=== PATIENT | female | born 1950 | race Caucasian/White ===

== ENCOUNTER 2020-08-01 17:22 | Inpatient (IN) | payer OTHER ==
[2020-08-01 19:59] LABS: BASO % 0.2 % (0-2.0); LYMPH % 3.1 % (8-40); MCH 32.2 pg (25.7-33.7); MCHC 34.2 g/dl (32.0-36.0); MEAN CELL VOLUME 94.1 fl (80-96); MEAN PLT VOLUME 8.9 fl (7.5-11.1); MONO % 9.6 % (3.8-10.2); NEUT % 87.1 % (42.8-82.8); PLATELET COUNT 328 K/MM3 (134-434); RBC 4.04 M/mm3 (3.60-5.2); RDW 13.8 % (11.6-15.6); WHITE BLOOD COUNT 10.5 K/mm3 (4.0-10.0)
[2020-08-01 20:09] LABS: INR 1.09 (0.83-1.09); PROTHROMBIN TIME (PATIENT) 13.2 SEC (9.7-13.0)
[2020-08-01 20:12] LABS: ACTIVATED PTT 26.5 SECONDS (25.2-36.5)
[2020-08-01 20:17] LABS: CALCIUM 9.4 mg/dL (8.5-10.1)
[2020-08-01 20:18] LABS: BLOOD UREA NITROGEN 13.6 mg/dL (7-18)
[2020-08-01 20:22] LABS: BILIRUBIN,TOTAL 0.7 mg/dL (0.2-1)
[2020-08-01] MEDS ORDERED: LOSARTAN POTASSIUM 25 MG TABLET PO ONE (21:33)
[2020-08-01] MEDS ORDERED: LIDOCAINE PATCH REMOVAL MC SCH (22:00)
[2020-08-01] MEDS ORDERED: LACTATED RINGERS SOLUTION 1,000 ML IV SCH (23:00)
[2020-08-01] MEDS ORDERED: ATENOLOL 25 MG TABLET (FP) ONE (23:12)
[2020-08-01] MEDS ORDERED: carBAMazepine 200 MG TABLET ONE (23:13)
[2020-08-01] MEDS ORDERED: LOSARTAN POTASSIUM 50 MG TABLET ONE (23:13)
[2020-08-01] MEDS: carBAMazepine 100 MG TAB.CHEW PO SCH (23:24)
[2020-08-01] MEDS: ATENOLOL 25 MG TABLET (FP) PO SCH (23:24)
[2020-08-02] MEDS ORDERED: LOSARTAN POTASSIUM 50 MG TABLET PO ONE (00:16)
[2020-08-02] MEDS: ACETAMINOPHEN 1000 MG/100 ML VIAL (NON FORMULARY) IVPB PRN ×2 (02:11→09:32)
[2020-08-02 05:58] VITALS: BMI 20.7
[2020-08-02] MEDS: carBAMazepine 100 MG TAB.CHEW PO SCH ×3 (06:46→22:17)
[2020-08-02 08:43] LABS: HEMATOCRIT 32.4 % (32.4-45.2); HEMOGLOBIN 11.4 GM/dL (10.7-15.3); MCH 32.8 pg (25.7-33.7); MCHC 35.1 g/dl (32.0-36.0); MEAN CELL VOLUME 93.4 fl (80-96); MEAN PLT VOLUME 8.9 fl (7.5-11.1); PLATELET COUNT 260 K/MM3 (134-434); RBC 3.47 M/mm3 (3.60-5.2); RDW 13.8 % (11.6-15.6); WHITE BLOOD COUNT 9.3 K/mm3 (4.0-10.0)
[2020-08-02 09:00] LABS: BLOOD UREA NITROGEN 14.9 mg/dL (7-18); CALCIUM 8.8 mg/dL (8.5-10.1)
[2020-08-02 09:01] LABS: MAGNESIUM 2.4 mg/dL (1.8-2.4)
[2020-08-02 09:02] LABS: CREATININE 0.6 mg/dL (0.55-1.3)
[2020-08-02 09:05] LABS: PHOSPHOROUS 3.6 mg/dL (2.5-4.9)
[2020-08-02] MEDS ORDERED: PT OWN MED DRAWER 7, Y5N ONE ×2 (09:22→23:16)
[2020-08-02] MEDS: ATENOLOL 25 MG TABLET (FP) PO SCH ×2 (09:34→21:19)
[2020-08-02] MEDS ORDERED: LIDOCAINE 5% TOPICAL PATCH TP SCH (10:00)
[2020-08-02] MEDS ORDERED: LOSARTAN POTASSIUM 50 MG TABLET PO SCH (10:00)
[2020-08-02] MEDS ORDERED: DEXTROSE 5%-0.45% SALINE 1,000 ML IV SCH (10:45)
[2020-08-02] MEDS ORDERED: PROPOFOL 20 ML ONE (12:20)
[2020-08-02] MEDS ORDERED: LIDOCAINE HCL/PF 2% SDV 5ML VIAL ONE (12:20)
[2020-08-02] MEDS ORDERED: MIDAZOLAM HCL 2 MG/2 ML SINGLE DOSE VIAL ONE (12:21)
[2020-08-02] MEDS ORDERED: ceFAZolin SODIUM 1 GM VIAL IVPB ONE (12:35)
[2020-08-02] MEDS ORDERED: ceFAZolin SODIUM 1 GM VIAL ONE (12:38)
[2020-08-02] MEDS ORDERED: NEOSTIGMINE METHYLSULFATE 0.5 MG/ML - 10 ML MDV ONE (12:54)
[2020-08-02] MEDS ORDERED: EPHEDRINE SULFATE/0.9% NACL/PF 50 MG/10 ML SYRINGE NR ONE (13:06)
[2020-08-02] MEDS ORDERED: ONDANSETRON 4 MG/2 ML VIAL IVPUSH PRN ×2 (13:06→14:28)
[2020-08-02] MEDS ORDERED: ACETAMINOPHEN 1000 MG/100 ML VIAL (NON FORMULARY) IVPB PRN (14:28)
[2020-08-02] MEDS ORDERED: LACTATED RINGERS SOLUTION 1,000 ML IV SCH (14:28)
[2020-08-02] MEDS: DEXTROSE 5%-0.45% SALINE 1,000 ML IV SCH ×3 (15:45→22:00)
[2020-08-02] MEDS: LIDOCAINE PATCH REMOVAL MC SCH (21:19)
[2020-08-02] MEDS: ATORVASTATIN CA 20 MG TABLET (FP) PO SCH (21:19)
[2020-08-02] MEDS ORDERED: LORazepam 2 MG/ML SDV VIAL IVPB ONE (22:00)
[2020-08-02] MEDS ORDERED: ATORVASTATIN CA 20 MG TABLET (FP) PO SCH (22:00)
[2020-08-02] MEDS ORDERED: LIDOCAINE PATCH REMOVAL MC SCH (22:00)
[2020-08-03] MEDS: carBAMazepine 100 MG TAB.CHEW PO SCH ×3 (06:07→21:27)
[2020-08-03 09:11] LABS: BASO % 0.5 % (0-2.0); EOS % 0.1 % (0-4.5); HEMATOCRIT 22.6 % (32.4-45.2); HEMOGLOBIN 7.7 GM/dL (10.7-15.3); LYMPH % 9.1 % (8-40); MCH 32.3 pg (25.7-33.7); MEAN PLT VOLUME 9.6 fl (7.5-11.1); MONO % 12.5 % (3.8-10.2); NEUT % 77.8 % (42.8-82.8); PLATELET COUNT 226 K/MM3 (134-434); RBC 2.37 M/mm3 (3.60-5.2); RDW 13.3 % (11.6-15.6); WHITE BLOOD COUNT 7.4 K/mm3 (4.0-10.0)
[2020-08-03] MEDS: ATENOLOL 25 MG TABLET (FP) PO SCH ×2 (09:28→21:25)
[2020-08-03] MEDS: ENOXAPARIN NA (PORCINE) 40 MG/0.4 ML DISP.SYRIN SQ SCH (09:28)
[2020-08-03] MEDS: LOSARTAN POTASSIUM 50 MG TABLET PO SCH (09:28)
[2020-08-03 09:29] LABS: CALCIUM 8.2 mg/dL (8.5-10.1)
[2020-08-03] MEDS: LIDOCAINE 5% TOPICAL PATCH TP SCH (09:29)
[2020-08-03 09:30] LABS: BLOOD UREA NITROGEN 14.7 mg/dL (7-18); MAGNESIUM 2.3 mg/dL (1.8-2.4)
[2020-08-03 09:33] LABS: CREATININE 0.6 mg/dL (0.55-1.3); PHOSPHOROUS 2.5 mg/dL (2.5-4.9)
[2020-08-03 09:34] LABS: BILIRUBIN,TOTAL 0.4 mg/dL (0.2-1)
[2020-08-03 09:37] LABS: ALBUMIN 2.6 g/dl (3.4-5.0); TOT PROT 4.7 g/dl (6.4-8.2)
[2020-08-03] MEDS: ACETAMINOPHEN 1000 MG/100 ML VIAL (NON FORMULARY) IVPB PRN ×2 (09:44→21:24)
[2020-08-03] MEDS ORDERED: QUEtiapine FUMARATE 25 MG TABLET PO ONE (11:47)
[2020-08-03] MEDS ORDERED: PT OWN MED DRAWER 7, Y5N ONE ×2 (11:54→21:27)
[2020-08-03] MEDS: DEXTROSE 5%-0.45% SALINE 1,000 ML IV SCH (13:23)
[2020-08-03] MEDS: ATORVASTATIN CA 20 MG TABLET (FP) PO SCH (21:25)
[2020-08-03] MEDS: LIDOCAINE PATCH REMOVAL MC SCH (21:28)
[2020-08-03 21:45] LABS: HEMATOCRIT 19.9 % (32.4-45.2); MCH 32.2 pg (25.7-33.7); MCHC 33.8 g/dl (32.0-36.0); MEAN CELL VOLUME 95.3 fl (80-96); MEAN PLT VOLUME 9.2 fl (7.5-11.1); PLATELET COUNT 209 K/MM3 (134-434); RBC 2.09 M/mm3 (3.60-5.2); RDW 13.7 % (11.6-15.6)
[2020-08-03 21:49] LABS: HEMOGLOBIN 6.7 GM/dL (10.7-15.3)
[2020-08-03] MEDS ORDERED: LORazepam 2 MG/ML SDV VIAL IVPB ONE (22:58)
[2020-08-04] MEDS: DEXTROSE 5%-0.45% SALINE 1,000 ML IV SCH ×2 (00:35→23:46)
[2020-08-04] MEDS: carBAMazepine 100 MG TAB.CHEW PO SCH ×3 (05:38→21:26)
[2020-08-04] MEDS: ACETAMINOPHEN 1000 MG/100 ML VIAL (NON FORMULARY) IVPB PRN (06:26)
[2020-08-04] MEDS: ATENOLOL 25 MG TABLET (FP) PO SCH ×2 (10:09→21:26)
[2020-08-04] MEDS: LIDOCAINE 5% TOPICAL PATCH TP SCH (10:09)
[2020-08-04] MEDS: LOSARTAN POTASSIUM 50 MG TABLET PO SCH (10:09)
[2020-08-04 12:16] LABS: BASO % 0.4 % (0-2.0); EOS % 0.4 % (0-4.5); HEMATOCRIT 23.7 % (32.4-45.2); HEMOGLOBIN 8.3 GM/dL (10.7-15.3); LYMPH % 7.4 % (8-40); MCH 31.4 pg (25.7-33.7); MEAN CELL VOLUME 89.7 fl (80-96); MONO % 10.7 % (3.8-10.2); NEUT % 81.1 % (42.8-82.8); PLATELET COUNT 226 K/MM3 (134-434); RBC 2.64 M/mm3 (3.60-5.2)
[2020-08-04 12:46] LABS: ALBUMIN 2.4 g/dl (3.4-5.0); BLOOD UREA NITROGEN 13.3 mg/dL (7-18); CALCIUM 7.8 mg/dL (8.5-10.1)
[2020-08-04 12:47] LABS: MAGNESIUM 2.2 mg/dL (1.8-2.4)
[2020-08-04 12:49] LABS: CREATININE 0.5 mg/dL (0.55-1.3)
[2020-08-04 12:50] LABS: PHOSPHOROUS 2.5 mg/dL (2.5-4.9)
[2020-08-04 12:51] LABS: BILIRUBIN,TOTAL 0.8 mg/dL (0.2-1); TOT PROT 4.5 g/dl (6.4-8.2)
[2020-08-04] MEDS ORDERED: PT OWN MED DRAWER 7, Y5N ONE ×3 (14:10→21:04)
[2020-08-04 16:17] LABS: BASO % 0.5 % (0-2.0); EOS % 0.4 % (0-4.5); HEMATOCRIT 25.9 % (32.4-45.2); HEMOGLOBIN 8.9 GM/dL (10.7-15.3); LYMPH % 8.7 % (8-40); MCH 31.5 pg (25.7-33.7); MCHC 34.5 g/dl (32.0-36.0); MEAN CELL VOLUME 91.1 fl (80-96); MEAN PLT VOLUME 9.4 fl (7.5-11.1); MONO % 12.5 % (3.8-10.2); NEUT % 77.9 % (42.8-82.8); PLATELET COUNT 233 K/MM3 (134-434); RBC 2.84 M/mm3 (3.60-5.2); RDW 16.3 % (11.6-15.6); WHITE BLOOD COUNT 6.2 K/mm3 (4.0-10.0)
[2020-08-04] MEDS: LIDOCAINE PATCH REMOVAL MC SCH (21:26)
[2020-08-04] MEDS: ATORVASTATIN CA 20 MG TABLET (FP) PO SCH (21:26)
[2020-08-04] MEDS ORDERED: ACETAMINOPHEN 325 MG TABLET (FP) PO PRN (23:53)
[2020-08-05] MEDS: carBAMazepine 100 MG TAB.CHEW PO SCH ×3 (06:12→21:47)
[2020-08-05 09:10] LABS: BASO % 0.4 % (0-2.0); EOS % 0.9 % (0-4.5); HEMATOCRIT 25.6 % (32.4-45.2); HEMOGLOBIN 8.8 GM/dL (10.7-15.3); LYMPH % 10.9 % (8-40); MCH 31.6 pg (25.7-33.7); MCHC 34.3 g/dl (32.0-36.0); MEAN CELL VOLUME 92.1 fl (80-96); MEAN PLT VOLUME 8.4 fl (7.5-11.1); MONO % 12.9 % (3.8-10.2); NEUT % 74.9 % (42.8-82.8); PLATELET COUNT 278 K/MM3 (134-434); RBC 2.77 M/mm3 (3.60-5.2); RDW 16.5 % (11.6-15.6); WHITE BLOOD COUNT 6.9 K/mm3 (4.0-10.0)
[2020-08-05 09:28] LABS: CALCIUM 7.4 mg/dL (8.5-10.1)
[2020-08-05 09:29] LABS: ALBUMIN 2.3 g/dl (3.4-5.0); BLOOD UREA NITROGEN 8.6 mg/dL (7-18); MAGNESIUM 2.2 mg/dL (1.8-2.4)
[2020-08-05 09:32] LABS: CREATININE 0.5 mg/dL (0.55-1.3); PHOSPHOROUS 2.1 mg/dL (2.5-4.9)
[2020-08-05 09:33] LABS: BILIRUBIN,TOTAL 0.6 mg/dL (0.2-1); TOT PROT 4.8 g/dl (6.4-8.2)
[2020-08-05] MEDS: ENOXAPARIN NA (PORCINE) 40 MG/0.4 ML DISP.SYRIN SQ SCH (11:10)
[2020-08-05] MEDS: LIDOCAINE 5% TOPICAL PATCH TP SCH (11:11)
[2020-08-05] MEDS: ATENOLOL 25 MG TABLET (FP) PO SCH ×2 (11:11→21:47)
[2020-08-05] MEDS: LOSARTAN POTASSIUM 50 MG TABLET PO SCH (11:11)
[2020-08-05] MEDS ORDERED: PT OWN MED DRAWER 7, Y5N ONE ×2 (13:09→21:01)
[2020-08-05] MEDS ORDERED: AMINO ACIDS 4.25%/D5W 1,000 ML IV SCH (19:15)
[2020-08-05] MEDS ORDERED: SODIUM PHOSPHATE - 20 MM in SODIUM CHLORIDE 250 ML IVPB ONE (20:00)
[2020-08-05] MEDS: ATORVASTATIN CA 20 MG TABLET (FP) PO SCH (21:47)
[2020-08-05] MEDS: LIDOCAINE PATCH REMOVAL MC SCH (21:48)
[2020-08-05] MEDS ORDERED: POLYETHYLENE GLYCOL 3350 119 GM BTL PO ONE (22:31)
[2020-08-06] MEDS ORDERED: QUEtiapine FUMARATE 25 MG TABLET PO ONE (03:15)
[2020-08-06] MEDS: carBAMazepine 100 MG TAB.CHEW PO SCH ×2 (05:38→14:07)
[2020-08-06 09:35] LABS: BASO % 0.4 % (0-2.0); EOS % 2.3 % (0-4.5); HEMATOCRIT 26.5 % (32.4-45.2); HEMOGLOBIN 9.3 GM/dL (10.7-15.3); LYMPH % 10.9 % (8-40); MCH 32.1 pg (25.7-33.7); MEAN CELL VOLUME 91.7 fl (80-96); MEAN PLT VOLUME 8.5 fl (7.5-11.1); MONO % 10.5 % (3.8-10.2); NEUT % 75.9 % (42.8-82.8); PLATELET COUNT 325 K/MM3 (134-434); RBC 2.89 M/mm3 (3.60-5.2); RDW 15.9 % (11.6-15.6)
[2020-08-06] MEDS: LOSARTAN POTASSIUM 50 MG TABLET PO SCH (10:01)
[2020-08-06] MEDS: ATENOLOL 25 MG TABLET (FP) PO SCH (10:01)
[2020-08-06] MEDS: LIDOCAINE 5% TOPICAL PATCH TP SCH (10:01)
[2020-08-06] MEDS: ENOXAPARIN NA (PORCINE) 40 MG/0.4 ML DISP.SYRIN SQ SCH (10:01)
[2020-08-06 10:05] LABS: ALBUMIN 2.4 g/dl (3.4-5.0); BILIRUBIN,TOTAL 0.8 mg/dL (0.2-1); CALCIUM 7.6 mg/dL (8.5-10.1); CREATININE 0.5 mg/dL (0.55-1.3); PHOSPHOROUS 2.8 mg/dL (2.5-4.9); TOT PROT 5.1 g/dl (6.4-8.2)
[2020-08-06 13:42] VITALS: BP 154/88; PULSE 87; TEMP 98.3
[2020-08-06] MEDS ORDERED: PT OWN MED DRAWER 7, Y5N ONE (13:46)
== END 2020-08-06 20:35 | DRG 481 ==
LOC: JER 17:22 → JERBED 18:35 → J6S 08-02 00:45
PROVIDERS: ADMIT Hospitalist; ATTEND Internal Medicine
PROC: 0QS706Z Reposition Left Upper Femur with Intramedullary Internal Fixation Device, Open Approach (ICD-10-PCS; principal; 2020-08-02 12:00)
PROC: 30233N1 Transfusion of Nonautologous Red Blood Cells into Peripheral Vein, Percutaneous Approach (ICD-10-PCS; 2020-08-04)
DX: S72.142A Displaced intertrochanteric fracture of left femur, initial encounter for closed fracture (principal); D62 Acute posthemorrhagic anemia; I10 Essential (primary) hypertension; E78.00 Pure hypercholesterolemia, unspecified; E78.5 Hyperlipidemia, unspecified; G40.909 Epilepsy, unspecified, not intractable, without status epilepticus; F03.90 Unspecified dementia, unspecified severity, without behavioral disturbance, psychotic disturbance, mood disturbance, and anxiety; W06.XXXA Fall from bed, initial encounter; Y92.092 Bedroom in other non-institutional residence as the place of occurrence of the external cause; Z86.73 Personal history of transient ischemic attack (TIA), and cerebral infarction without residual deficits
CPT/HCPCS: 36415; 36430; 70450-TC; 71045-TC-FY; 72125-TC; 73523-TC-FY; 73552-TC-LT-FY; 76000-TC-FY; 80048; 80053; 82550; 82553; 83735; 84100; 84484; 85025; 85027; 85610; 85730; 86850; 86900; 86901; 86922; 93005; 93010; 94760; 97116-GP; 97162-GP; 99285-25; C9803; J0131; P9058; U0003; U0005

== ENCOUNTER 2021-07-15 19:34 | Emergency (ER) | payer OTHER ==
[2021-07-15] MEDS ORDERED: ACETAMINOPHEN 1000 MG/100 ML BAG IVPB ONE (20:10)
[2021-07-15] MEDS ORDERED: METOCLOPRAMIDE HCL INJECTION 10 MG/2 ML VIAL IVPB ONE (20:10)
[2021-07-15 20:14] VITALS: TEMP 97.7; BMI 18.8
[2021-07-15] MEDS ORDERED: METOCLOPRAMIDE HCL INJECTION 10 MG/2 ML VIAL ONE (20:35)
[2021-07-15] MEDS ORDERED: ACETAMINOPHEN INJECTION 100 ML IVPB ONE (20:38)
[2021-07-15 21:54] LABS: BASO % 0.7 % (0-2.0); EOS % 0.2 % (0-4.5); HEMATOCRIT 42.3 % (32.4-45.2); LYMPH % 7.7 % (8-40); MCH 31.5 pg (25.7-33.7); MCHC 33.2 g/dl (32.0-36.0); MEAN CELL VOLUME 94.8 fl (80-96); MEAN PLT VOLUME 8.5 fl (7.5-11.1); MONO % 16.2 % (3.8-10.2); NEUT % 75.2 % (42.8-82.8); PLATELET COUNT 312 10^3/uL (134-434); RBC 4.46 M/mm3 (3.60-5.2); RDW 14.5 % (11.6-15.6); WHITE BLOOD COUNT 4.6 K/mm3 (4.0-10.0)
[2021-07-15 21:57] LABS: INR 1.07 (0.83-1.09); PROTHROMBIN TIME (PATIENT) 12.3 SEC (9.7-13.0)
[2021-07-15 22:00] LABS: ACTIVATED PTT 32.9 SECONDS (25.2-36.5)
[2021-07-15 22:13] LABS: BLOOD UREA NITROGEN 13.3 mg/dL (7-18); CALCIUM 9.3 mg/dL (8.5-10.1)
[2021-07-15 22:14] LABS: ALBUMIN 4.1 g/dl (3.4-5.0)
[2021-07-15 22:15] LABS: CHOLESTEROL 220 mg/dL (50-200)
[2021-07-15 22:16] LABS: TRIGLYCERIDES 56 mg/dL (0-150)
[2021-07-15 22:17] LABS: CREATININE 0.6 mg/dL (0.55-1.3); LDL CHOLESTEROL (ONLY SJRH) 83 mg/dL (5-100)
[2021-07-15 22:18] LABS: BILIRUBIN,TOTAL 0.3 mg/dL (0.2-1); HDL CHOLESTEROL 113 mg/dL (40-60); TOT PROT 7.1 g/dl (6.4-8.2)
[2021-07-16 02:21] VITALS: BP 148/78; PULSE 76
== END 2021-07-16 02:21 | disposition short-term general hospital (02) ==
LOC: JER 19:34
DX: I77.71 Dissection of carotid artery (principal)
CPT/HCPCS: 36415; 70450-TC; 70496-TC; 70498-TC; 71045-TC-FY; 80053; 80061; 83036; 84484; 85025; 85610; 85730; 86850; 86900; 86901; 93005; 93010; 99291; 99292